=== PATIENT | male | born 1950 | race Caucasian/White ===

== ENCOUNTER 2016-10-16 00:30 | Emergency (ER) | payer BC ==
[2016-10-16 03:44] LABS: HEMOGLOBIN 13.1 gm/dl (14.0-17.5); RED BLOOD COUNT 4.7 M/UL (4.20-5.50); WHITE BLOOD COUNT 8.9 K/UL (4.5-11.0)
[2016-10-16 04:06] LABS: BUN/CREATININE RATIO 18 (0-10)
[2016-12-10] MEDS ORDERED: ECOTRIN81 MG PO (06:49)
[2016-12-10] MEDS ORDERED: PRINIVIL10 MG PO (06:49)
[2016-12-10] MEDS ORDERED: PRAVASTATIN SOD40 MG PO (06:50)
[2016-12-10] MEDS ORDERED: VITAMIN D350000 UNIT PO (06:51)
== END 2016-10-16 06:35 | disposition admitted as inpatient to this hospital (09) ==
LOC: ER1 00:30 → ZEROF 05:00
PROVIDERS: Family Medicine
DX: I20.9 Angina pectoris, unspecified (principal); L98.9 Disorder of the skin and subcutaneous tissue, unspecified; I10 Essential (primary) hypertension; E11.9 Type 2 diabetes mellitus without complications; Z79.82 Long term (current) use of aspirin; Z79.84 Long term (current) use of oral hypoglycemic drugs; Z79.899 Other long term (current) drug therapy
CPT/HCPCS: 36415; 71020; 80053; 82550; 82553; 83874; 84484; 85025; 93005; 99285; G0378

== ENCOUNTER → 2016-11-05 | Outpatient (CLI) | payer BC ==
[~2016-11-05] MED LIST: BRILINTA 90 MG90 MG PO; CRESTOR20 MG PO; ECOTRIN81 MG PO; ISORDIL TAB 3030 MG PO; LISINOPRIL10 MG PO; PRAVASTATIN SOD40 MG PO; PRINIVIL10 MG PO; PROTONIX 40 MG40 M1 PO; TOPROL XL25 MG PO; VITAMIN D350000 UNIT PO
== END ==
LOC: CT 14:37
DX: R93.8 Abnormal findings on diagnostic imaging of other specified body structures (principal); R91.8 Other nonspecific abnormal finding of lung field
CPT/HCPCS: 71270; J7050; Q9962

== ENCOUNTER → 2016-11-12 | Outpatient (CLI) | payer BC | LOC: NM 10-27 10:00 | DX: M79.603 Pain in arm, unspecified (principal); R68.84 Jaw pain; Z87.898 Personal history of other specified conditions; I51.7 Cardiomegaly; I35.1 Nonrheumatic aortic (valve) insufficiency; I35.8 Other nonrheumatic aortic valve disorders | CPT/HCPCS: ECHO; 78452; 93017; 93306; A9502; J2785 ==

== ENCOUNTER 2017-03-05 06:30 | Outpatient (CLI) | payer MEDICARE, OTHER ==
[~2017-03-05] VITALS: Ht 182.9 cm; Wt 85.0 kg
[~2017-03-05 06:30] MED LIST changes: -BRILINTA 90 MG90 MG PO; -CRESTOR20 MG PO; -ISORDIL TAB 3030 MG PO; -LISINOPRIL10 MG PO; -PROTONIX 40 MG40 M1 PO; -TOPROL XL25 MG PO
[2017-03-05 07:18] LABS: HEMOGLOBIN 13.9 gm/dl (14.0-17.5); RED BLOOD COUNT 5.01 M/UL (4.20-5.50)
[2017-03-05] MEDS ORDERED: ISORDIL TAB 3030 MG PO (07:24)
[2017-03-05] MEDS ORDERED: PROTONIX 40 MG40 M1 PO (07:25)
[2017-03-05] MEDS ORDERED: LISINOPRIL10 MG PO (07:26)
[2017-03-05] MEDS ORDERED: TOPROL XL25 MG PO (07:28)
[2017-03-05 07:37] LABS: BUN/CREATININE RATIO 13 (0-10)
[2017-03-06 04:09] LABS: HEMOGLOBIN 13.5 gm/dl (14.0-17.5); RED BLOOD COUNT 4.84 M/UL (4.20-5.50); WHITE BLOOD COUNT 8.9 K/UL (4.5-11.0)
[2017-03-06 04:30] LABS: BUN/CREATININE RATIO 13 (0-10)
[2017-03-06] MEDS ORDERED: BRILINTA 90 MG90 MG PO (10:10)
[2017-03-06] MEDS ORDERED: CRESTOR20 MG PO (10:18)
== END 2017-03-06 11:19 | disposition home or self-care (01) ==
LOC: CATH 06:30 → PROG CARE 11:11 → CATH 03-06 11:19
PROVIDERS: Internal Medicine Interventional Cardiology
DX: I20.9 Angina pectoris, unspecified (principal); R94.39 Abnormal result of other cardiovascular function study; I10 Essential (primary) hypertension; E11.9 Type 2 diabetes mellitus without complications; E78.5 Hyperlipidemia, unspecified; I35.1 Nonrheumatic aortic (valve) insufficiency; K21.9 Gastro-esophageal reflux disease without esophagitis; E55.9 Vitamin D deficiency, unspecified; J98.19 Other pulmonary collapse; Z79.82 Long term (current) use of aspirin; Z79.899 Other long term (current) drug therapy
CPT/HCPCS: 36415; 80048; 82962; 85025; 85027; 85347; 85610; 85730; 99152; 99153; C1725; C1769; C1874; C1887; C9600; J0461; J0583; J1644; J2250; J3010; J7030; Q0163; Q2039; Q9963

== ENCOUNTER → 2020-09-05 | Outpatient (CLI) | payer MEDICARE, OTHER ==
[~2020-09-05] MED LIST changes: +BRILINTA 90 MG90 MG PO; +CRESTOR20 MG PO; +ISORDIL TAB 3030 MG PO; +LISINOPRIL10 MG PO; +PROTONIX 40 MG40 M1 PO; +TOPROL XL25 MG PO
== END ==
LOC: CT 07:21
DX: R91.8 Other nonspecific abnormal finding of lung field (principal); D09.19 Carcinoma in situ of other urinary organs; K76.9 Liver disease, unspecified
CPT/HCPCS: 36415; 71260; 82565; Q9967

== ENCOUNTER → 2020-09-16 | Outpatient (CLI) | payer MEDICARE, OTHER | LOC: HEART 5 08:14 | DX: I08.0 Rheumatic disorders of both mitral and aortic valves (principal) | CPT/HCPCS: 93306 ==

== ENCOUNTER → 2020-09-30 | Outpatient (CLI) | payer MEDICARE, OTHER | LOC: CT 09-27 09:00 | DX: N28.89 Other specified disorders of kidney and ureter (principal); K76.9 Liver disease, unspecified; R91.8 Other nonspecific abnormal finding of lung field | CPT/HCPCS: 36415; 74170; Q9967 ==

== ENCOUNTER → 2021-03-31 | Outpatient (CLI) | payer MEDICARE, OTHER | LOC: EXRD 09:49 | DX: R05.9 Cough, unspecified (principal) | CPT/HCPCS: 71046 ==